=== PATIENT | male | born 1980 | race African-American/Black ===

== ENCOUNTER 2017-03-20 06:10 | Emergency (ER) | payer OTHER ==
[~2017-03-20] VITALS: Ht 180.3 cm; Wt 113.4 kg
[2017-03-20] MEDS ORDERED: NAPROXEN 500 MG TABLET PO STA (06:34)
[2017-03-20] MEDS ORDERED: DOXY100C14 PO (06:43)
[2017-03-20] MEDS ORDERED: NAPR500T PO (06:43)
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
[2017-03-20] MEDS ORDERED: cefTRIAXone IM 250 MG VIAL IM ONE (06:45)
[2017-03-20] MEDS ORDERED: AZITHROMYCIN 250 MG TABLET. PO ONE (06:45)
--- NOTE | 2017-03-20 07:08 | RAD ---
Indication: Ankle pain. History of fracture. Technique: 3 views of the left ankle are submitted for review. No comparison is available. Findings: There is no acute fracture or dislocation. There is mild diffuse soft tissue swelling. Deformity of the calcaneus may be sequela of old trauma. Please correlate with any previous imaging. There is minimal spurring in the tibiotalar joint. Impression: Negative for acute fracture.
[2017-03-20 07:16] VITALS: BP 134/75
== END 2017-03-20 07:32 | disposition home or self-care (01) ==
LOC: ER 06:10
DX: N34.2 Other urethritis (principal); M19.072 Primary osteoarthritis, left ankle and foot; G89.29 Other chronic pain; F17.210 Nicotine dependence, cigarettes, uncomplicated
CPT/HCPCS: 73610; 87491; 87591; 96372; 99285; J0696; Q0144

== ENCOUNTER 2017-06-16 14:20 | Emergency (ER) | payer OTHER ==
[2017-06-16] MEDS: IBUPROFEN 800 MG TABLET. PO (16:42)
[2017-06-16] MEDS: predniSONE 20 MG TABLET PO (16:42)
[2017-06-16] MEDS: BENZONATATE 100 MG CAPSULE. PO (16:43)
[2017-06-16] MEDS: IPRATRPIUM/ALBUTEROL 0.5/2.5MG 3 ML NEBU. NEB (16:45)
== END 2017-06-16 17:09 | disposition home or self-care (01) ==
LOC: ER 14:20
DX: J20.9 Acute bronchitis, unspecified (principal); F17.200 Nicotine dependence, unspecified, uncomplicated
CPT/HCPCS: 71046; 94640; 99284-25; J7512; J7620

== ENCOUNTER 2020-03-10 08:00 | Emergency (ER) | payer SELFPAY ==
[~2020-03-10] VITALS: Ht 177.8 cm; Wt 104.0 kg
[~2020-03-10 08:00] MED LIST: BENZ100C PO; DOXY100C14 PO; NAPR-683 PO; PRED50TA PO; PROAIR RESPICL90 MCG IH; TRAM-48 PO
[2020-03-10 08:20] VITALS: BP 170/93
[2020-03-10] MEDS ORDERED: FLUORESCEIN OPHTH TEST STRIP. OU ONE (09:30)
[2020-03-10] MEDS ORDERED: TETRACAINE 0.5% OPHTH SOLUTION 4ML BOTTLE. OU ONE (09:30)
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
[2020-03-10] MEDS ORDERED: ERYT1OIN6 OP (10:07)
== END 2020-03-10 10:20 | disposition home or self-care (01) ==
LOC: ER 08:00
DX: H18.893 Other specified disorders of cornea, bilateral (principal); F17.200 Nicotine dependence, unspecified, uncomplicated
CPT/HCPCS: 99283